=== PATIENT | female | born 1940 | race Caucasian/White ===

== ENCOUNTER 2016-06-09 09:45 | Day surgery (SDC) | payer MEDICARE, BC ==
[~2016-06-09 09:45] MED LIST: Bupivacaine 0.5%/EPINEPHrine 1:200,000 50 ML MDV ONE
[2016-06-09] MEDS ORDERED: Lactated Ringers 1,000 ML IV SCH (10:45)
[2016-06-09] MEDS ORDERED: ceFAZolin 2 GM in Sodium Chloride 0.9% 50 ML IV ONE (11:00)
[2016-06-09] MEDS ORDERED: ceFAZolin 2 GM in Premix Bag 1 BAG IV ONE (11:10)
[2016-06-09] MEDS ORDERED: Propofol 200 MG/20 ML SDV ONE (11:16)
[2016-06-09] MEDS ORDERED: Midazolam 1 MG/ML 2 ML SDV ONE (11:16)
[2016-06-09] MEDS ORDERED: fentaNYL 100 MCG/2 ML SDV ONE (11:16)
[2016-06-09] MEDS ORDERED: Lidocaine 1% with EPINEPHrine 1:100,000 50 ML MDV ONE (11:21)
[2016-06-09] MEDS ORDERED: Bupivacaine 0.5% 50 ML MDV ONE (11:21)
[2016-06-09 13:09] VITALS: BP 124/73
[2016-06-09] MEDS ORDERED: Acetaminophen/Codeine 300-30 MG Tab PO PRN (13:19)
--- NOTE | 2016-06-10 07:58 | OR ---
DATE OF PROCEDURE: 06/09/2016 PREOPERATIVE DIAGNOSIS: Recurrent pilonidal disease. POSTOPERATIVE DIAGNOSIS: Recurrent pilonidal disease with central pits and lateral abscess. PROCEDURE: Excision of central pilonidal pits, excision and drainage of right lateral pilonidal abscess, maintenance of lateral drainage. ANESTHESIA: IV anesthesia with monitored anesthesia care. INDICATIONS: This 75-year-old white female says over 50 years ago, she underwent excision of pilonidal disease. She now notes some mass on the right side of her buttock cleft which is tender. She has a pit in this area which is inferior to her pilonidal excision scar. She is here for excision of the central pit and drainage of the abscess, probably with maintenance of the lateral drainage. I counseled her for the procedure including risks and alternatives, and she gave her informed consent to proceed. DESCRIPTION OF PROCEDURE: The patient was placed prone in the jackknife position on the operating room table. IV anesthesia was administered by the Anesthesia Service. Her pilonidal area including the buttocks were prepped and draped in the usual sterile fashion. Time-out was held. Lidocaine 1% with epinephrine and 50:50 mix with 0.5% Marcaine was infiltrated about her pilonidal disease. An elliptical incision was made in the right lateral mass which was longitudinal. We released copious quantities of purulent material. This was sent for Gram stain and culture. The central pilonidal pit was excised. This material was sent to pathology. No obvious skin components were noted deep. The communication between the abscess and the central excision area was scored with a Ray-Debora sponge. The central incision was then closed with a running stitch of 3-0 Prolene. The incision was irrigated and suctioned dry. Quarter inch iodoform gauze was placed in the lateral drainage site and a sterile dressing was applied. She was placed supine and brought from the operating room in good condition having tolerated the procedure well. Samuel Lira MD /[id number]
== END 2016-06-09 14:00 | disposition home or self-care (01) ==
LOC: JP.SDS 09:45
PROVIDERS: ATTEND Surgery
PROC: 0JB90ZZ Excision of Buttock Subcutaneous Tissue and Fascia, Open Approach (ICD-10-PCS; principal; 2016-06-09)
DX: L05.01 Pilonidal cyst with abscess (principal); Z91.09 Other allergy status, other than to drugs and biological substances
CPT/HCPCS: 11770; 87070; 87075; 87205; A9270; J0690; J2250; J2704; J3010; J7120; 87077; 87186; 88304

== ENCOUNTER 2016-06-16 06:45 | Day surgery (SDC) | payer MEDICARE, BC ==
[2016-06-16] MEDS ORDERED: MVI, Adult with Vitamin K 10 ML, Thiamine 200 MG, Chromium/Copper/Mang/Selen/Zn 1 ML in... IV ONE ×4 (07:15)
[2016-06-16] MEDS ORDERED: Glycopyrrolate 0.2 MG/ML 2 ML SYRINGE IVPUSH ONE (07:15)
[2016-06-16] MEDS ORDERED: Cyanocobalamin (Vitamin B12) 1,000 MCG/ML SDV IM ONE (07:15)
[2016-06-16] MEDS ORDERED: Lactated Ringers 1,000 ML IV ONE (07:15)
[2016-06-16] MEDS ORDERED: Propofol 200 MG/20 ML SDV ONE (09:04)
[2016-06-16] MEDS ORDERED: fentaNYL 100 MCG/2 ML SDV ONE (09:04)
[2016-06-16 11:22] VITALS: BP 126/67
--- NOTE | 2016-06-18 08:03 | OR ---
DATE OF PROCEDURE: 06/16/2016 PREOPERATIVE DIAGNOSIS: Bilious emesis status post previous Mayte-en-Y gastric bypass. POSTOPERATIVE DIAGNOSIS: Bilious emesis status post Mayte-en-Y gastric bypass, suggestive of a partial small bowel obstruction. OPERATIVE PROCEDURE: Upper gastrointestinal endoscopy. ANESTHESIA: IV sedation. INDICATION FOR PROCEDURE: The patient is status post Mayte-en-Y gastric bypass in 2001. Overall, she has done well since that time. More recently, however, she has developed some bilious emesis, at times appearing to probably aspirate this. She has raised the head of her bed but still continues to have significant problems in this area. This would be suggestive of either partial small bowel obstruction resulting in bilious return through the Mayte limb versus a gastrogastric fistula. Plan is proceed with upper GI endoscopy for diagnostic purposes. Potential risks of the procedure, including bleeding and perforation, were discussed, and the patient wishes to proceed. DETAILS OF PROCEDURE: The patient was taken to the operating room and placed in a left lateral decubitus position. IV sedation was administered, after which the upper GI endoscope was passed orally through the length of the esophagus and into the gastric pouch and from there roughly 20 cm through the gastrojejunostomy and into the Mayte limb. There was noted to be some bile present immediately within the esophageal body. This was evacuated as it was encountered. As one passed down into the area of the esophagogastric junction and gastric pouch, these areas were somewhat reddened, likely related to the bile regurgitation. Very careful examination was undertaken at this point, looking for any evidence of a gastrogastric fistula. There was a small dimpling area posterior to the primary anastomosis, but after careful observation, no fistula could be identified overall. The entire wall of the gastric pouch was easily visualized. As one passed through the gastrojejunostomy, this was widely patent, and there continued to be bile present through the remainder of the visualized Mayte limb. The scope was then withdrawn. The above findings were then reconfirmed. As discussed with the patient, the amount of bile present would put the patient at significant risk for pulmonary complications. Given this, the plan will be to proceed with a diagnostic laparoscopy, laparotomy if necessary, and treatment of what is probably a partial small bowel obstruction. Will also carefully look at the area of the interface between the pouch and bypassed stomach to once again be as sure as possible there are not any gastrogastric fistulas that we are somehow not seeing. This will be scheduled for this coming , in other words, 48 hours. Bernardino Mcgraw MD /[id number]
== END 2016-06-16 11:45 | disposition home or self-care (01) ==
LOC: JP.SDS 06:45
PROVIDERS: ATTEND Surgery
DX: R11.14 Bilious vomiting (principal); I10 Essential (primary) hypertension; K21.9 Gastro-esophageal reflux disease without esophagitis; F32.9 Major depressive disorder, single episode, unspecified; F17.200 Nicotine dependence, unspecified, uncomplicated; Z98.84 Bariatric surgery status; Z91.09 Other allergy status, other than to drugs and biological substances
CPT/HCPCS: 43235; J2704; J3010; J3411; J3420; J7120

== ENCOUNTER 2016-06-19 12:15 | Inpatient (IN) | payer MEDICARE, BC ==
[2016-06-20] MEDS ORDERED: fentaNYL 25 MCG/HR Transdermal Patch TRDERM SCH (08:00)
[2016-06-20] MEDS ORDERED: FENTANYL PATCH ASK TOP SCH (08:00)
[2016-06-20] MEDS ORDERED: fentaNYL 12 MCG/HR Transdermal Patch TRDERM SCH (08:00)
[2016-06-20] MEDS ORDERED: Dexamethasone 4 MG/ML SDV ONE (08:36)
[2016-06-20] MEDS ORDERED: Succinylcholine/Normal Saline 200 MG/10 ML Syringe ONE (08:36)
[2016-06-20] MEDS ORDERED: Rocuronium 50 MG/5 ML Vial ONE (08:36)
[2016-06-20] MEDS ORDERED: Neostigmine Methylsulfate 1 MG/ML 5 ML Syringe ONE (08:36)
[2016-06-20] MEDS ORDERED: Propofol 200 MG/20 ML SDV ONE (08:36)
[2016-06-20] MEDS ORDERED: Ondansetron 4 MG/2 ML SDV ONE (08:36)
[2016-06-20] MEDS ORDERED: fentaNYL 250 MCG/5 ML SDV ONE (08:37)
[2016-06-20] MEDS ORDERED: HYDROmorphone/Normal Saline 15 MG/30 ML PCA IV PRN (08:44)
[2016-06-20] MEDS ORDERED: Naloxone 0.4 MG/ML SDV IVPUSH PRN (08:44)
[2016-06-20] MEDS ORDERED: Dextrose 5%-Lactated Ringers 1,000 ML IV SCH ×2 (09:00→13:30)
[2016-06-20] MEDS: Bupivacaine 0.5%/EPINEPHrine 1:200,000 50 ML MDV ONE ×2 (09:13→10:23)
[2016-06-20] MEDS ORDERED: Albuterol/Ipratropium 3.0-0.5 MG/3 ML Neb Soln NEB ONE (09:38)
[2016-06-20] MEDS: cefOXitin 2 GM in Sodium Chloride 0.9% 50 ML IV ONE ×2 (09:38→11:58)
[2016-06-20] MEDS ORDERED: Meropenem 500 MG SDV ONE (10:46)
[2016-06-20] MEDS ORDERED: Lactated Ringers 1,000 ML ONE (10:51)
--- NOTE | 2016-06-20 10:58 | CR ---
Heart size within normal limits. There is a diffuse reticular interstitial process within both lungs . No focal consolidation. Stenosis of the spine. Nodular density at the right third rib. Additional nodular density right midlung zone. Impression: 1. No focal consolidation 2. Interstitial thickening may be chronic. Correlate for mild interstitial edema. 3. Possible pulmonary nodules. Recommend nonurgent noncontrast chest CT follow-up.
[2016-06-20] MEDS ORDERED: Acetaminophen 1,000 MG in Premix Bag 1 BAG IV ONE (11:37)
[2016-06-20] MEDS ORDERED: Albuterol/Ipratropium 3.0-0.5 MG/3 ML Neb Soln INH PRN (13:23)
[2016-06-20] MEDS ORDERED: Ondansetron 4 MG/2 ML SDV IVPUSH PRN (13:28)
[2016-06-20] MEDS ORDERED: Labetalol 20 MG/4 ML Syringe IVPUSH PRN (13:28)
[2016-06-20] MEDS ORDERED: SCOPOLAMINE PATCH ASK TOP SCH (13:28)
[2016-06-20] MEDS ORDERED: hydrOXYzine HCl 50 MG/ML SDV IM PRN (13:28)
[2016-06-20] MEDS ORDERED: Metoclopramide 10 MG/2 ML SDV IV PRN (13:32)
[2016-06-20] MEDS ORDERED: diphenhydrAMINE 50 MG/ML SDV IV PRN (13:33)
[2016-06-20] MEDS: Albuterol/Ipratropium 3.0-0.5 MG/3 ML Neb Soln INH SCH ×2 (14:48→21:16)
[2016-06-20] MEDS: VERIFY FENT PATCH TOP SCH ×2 (15:26→20:05)
[2016-06-20] MEDS: Pantoprazole 40 MG Vial IVPUSH SCH (15:34)
[2016-06-20] MEDS: cefOXitin 2 GM in Sodium Chloride 0.9% 50 ML IV SCH ×2 (15:34→21:42)
[2016-06-20] MEDS ORDERED: MVI, Adult with Vitamin K 10 ML, Thiamine 200 MG, Chromium/Copper/Mang/Selen/Zn 1 ML in... IV SCH ×4 (16:00)
[2016-06-21] MEDS ORDERED: Iohexol 647 MG/ML 50 ML SDV PO STA (03:31)
[2016-06-21] MEDS: cefOXitin 2 GM in Sodium Chloride 0.9% 50 ML IV SCH ×4 (04:06→21:31)
[2016-06-21] MEDS: Albuterol/Ipratropium 3.0-0.5 MG/3 ML Neb Soln INH SCH ×4 (07:22→21:31)
[2016-06-21] MEDS ORDERED: Acetaminophen/Codeine 300-30 MG Tab PO PRN (07:52)
[2016-06-21] MEDS ORDERED: Acetaminophen 325 MG Tab PO PRN (07:52)
[2016-06-21] MEDS ORDERED: Dextrose 5%-Lactated Ringers 1,000 ML IV SCH (08:45)
[2016-06-21] MEDS: Aspirin 81 MG Tab.EC PO SCH (09:44)
[2016-06-21] MEDS: SCOPOLAMINE PATCH CHECK TOP SCH (10:00)
[2016-06-21] MEDS: VERIFY FENT PATCH TOP SCH (10:01)
[2016-06-21] MEDS: Pantoprazole 40 MG Vial IVPUSH SCH (15:14)
[2016-06-22] MEDS: Albuterol/Ipratropium 3.0-0.5 MG/3 ML Neb Soln INH SCH (07:14)
[2016-06-22 07:40] VITALS: BP 140/63
[2016-06-22] MEDS: Aspirin 81 MG Tab.EC PO SCH (08:17)
[2016-06-22] MEDS: SCOPOLAMINE PATCH CHECK TOP SCH (08:23)
[2016-06-22] MEDS ORDERED: Cyanocobalamin (Vitamin B12) 1,000 MCG/ML SDV IM ONE (09:00)
--- NOTE | 2016-06-22 12:08 | PN ---
DATE OF SERVICE: 06/21/2016 The patient has been afebrile with stable vital signs. She took in liquids adequately yesterday and then has had further bilious emesis. We will regular diet and switch over to oral pain medication, and she may be ready for discharge home tomorrow. Bernardino Mcgraw MD /[id number]
--- NOTE | 2016-06-23 08:13 | DISCH ---
FINAL DIAGNOSIS: Small bowel volvulus with stenotic jejunojejunostomy. SECONDARY DIAGNOSES: 1. Bariatric surgery status. 2. History of depression. 3. History of hypertension. 4. History of bilateral cyst status post recent incision and drainage. OPERATIVE PROCEDURE: Done on 06/20/2016, reveals a diagnostic laparoscopy with: 1. Reduction of small bowel volvulus and closure of internal hernia. 2. Revision of jejunojejunostomy component of Mayte-en-Y gastric bypass. HOSPITAL COURSE: This is a 75-year-old status post Mayte-en-Y gastric bypass in 2001. She over the past several weeks has had increasing problems with bilious emesis and bile getting up into the throat. Upper GI endoscopy failed to show any gastrogastric fistula and this was presumably related therefore to a small bowel obstruction. Diagnostic laparoscopy was performed which showed a small bowel volvulus. After this we reduced and there was quite a bit in the way of stenosis at the point where the Mayte limb entered the jejunojejunostomy. Given this the jejunojejunostomy was revised making the Mayte limb slightly longer with the biliary pancreatic limb being attached somewhat further distally on the bowel consisting of the Mayte limb as it always into the common limb. Postoperatively, the bilious emesis was absent, so the procedure appeared to be successful. She will be discharged home on a regular gastric bypass diet. She has not needed anything for pain over the last 24 hours so she will be instructed to take some Tylenol or Tylenol No. 3 which is what she has at home if needed otherwise, the problem with reflux has stopped so I will discontinue Protonix and Carafate. Otherwise, continue present home medications and follow up with Sarah Ray at [facility] on Thursday06/30/2016. The patient is packing a bilateral cyst ID site herself. Will have Sarah Ray check that as well and then subsequent followup can be renewed with Dr. Lira regarding that issue.
--- NOTE | 2016-06-23 08:28 | OR ---
DATE OF PROCEDURE: 06/20/2016 PREOPERATIVE DIAGNOSIS: Probable partial small bowel obstruction. POSTOPERATIVE DIAGNOSES: 1. Partial small bowel obstruction secondary to small bowel volvulus. 2. 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 OPERATIVE PROCEDURE: Diagnostic laparoscopy with: 1. Reduction of small bowel volvulus and closure of internal hernia (10595). 2. Revision of jejunojejunostomy component of Mayte-en-Y gastric bypass (55149). ANESTHESIA: General. EC TEACHER: Sarah Ray PA-C. INDICATION FOR PROCEDURE: This is a 75-year-old female status post Mayte-en-Y gastric bypass in 2001 presenting with some ongoing bilious vomiting and upper GI endoscopy was performed which showed no signs of gastric fistula so this revision will be related to bile backup secondary partial small bowel obstruction. Plan is to proceed with a diagnostic laparoscopy, laparotomy necessary and release of the bowel obstruction with small bowel resection as indicated. Potential risks of procedure including bleeding, infection, leaks from various GI tract closures, possible recurrence of the problem over time as well as remote possibility of cardiopulmonary, septic, or hemorrhagic complications leading to were discussed, and the patient wishes to proceed. DETAILS OF PROCEDURE: The patient was taken to the operating room and placed in a supine position. After general endotracheal anesthesia was induced, she was converted to a lithotomy position. Schaffer catheter was inserted and the abdomen was prepped and draped. Beginning the left lower quadrant, a transverse incision was made. The peritoneal cavity was entered under direct vision with Optiview trocar, inflated to 15 mmHg pressure of CO2. Laparoscope was then reinserted. No underlying trocar insertion site injuries were seen. Eventually 5 additional trocars were placed across the upper mid abdomen. Initial exploration revealed a small bowel volvulus with the small bowel rotating from a right to left direction through the defect in the mesentery of the jejunojejunostomy. Once this was reduced, all components appeared to be in appropriate location. However, there was an obvious stricture probably related chronic angulation at the biliopancreatic limb as it joined in the jejunojejunostomy. Given this, it was felt this anastomosis need to be revised. The bowel consisting of the Mayte limb going onto the common limb was then divided away from the biliary pancreatic limb. Small bowel and biliopancreatic limb was then resected, to get to a clean area.The jejunojejunostomy was then reconstructed at a point roughly 20 cm distal to the original anastomosis, this given the patient's Mayte limb length of around 150 cm. This was accomplished with internal firing of the Endo-JAMES vascular load, which closed transversely with the purple load and the angles anastomosed, and mesenteric defect approximated with some 0 Ethibond stitch along with fibrin sealant. At this point, no further problems were noted. The abdomen was irrigated with meropenem-containing saline solution. Trocars were removed. The fascia at the 12 mm site was closed with 0 Vicryl stitch and the skin with a 5-0 Prolene stitch as the patient is allergic to Vicryl. The patient was taken to the recovery room in satisfactory condition. Physician patient services assistant, Sarah Ray, played an essential role in assisting in this case, helping to position the patient, retract structures as needed, as well as suturing and cutting sutures when indicated. Her presence improved patient's safety and decreased the operative time. Bernardino Mcgraw MD /[id number]
--- NOTE | 2016-06-23 09:01 | CR ---
Limited upper GI The patient is status post Mayte-en-Y gastric bypass. There is no extravasation of contrast or fistul a. The gastric pouch empties readily into a nondilated Mayte limb. Contrast passes distal to the jeju nojejunal anastomosis. No complications are evident. Impression: 1. Status post Mayte-en-Y gastric bypass without evidence for complication.
== END 2016-06-22 11:10 | disposition home or self-care (01) | DRG 330 ==
LOC: JP.SDSSCHI 06-20 08:01 → JP.SDS 06-20 08:01 → EDSTATUS 06-20 12:00 → JP.2SS 06-20 12:30
PROVIDERS: ADMIT Surgery; ATTEND Surgery
PROC: 0DQA4ZZ Repair Jejunum, Percutaneous Endoscopic Approach (ICD-10-PCS; principal; 2016-06-20)
PROC: 0DSA4ZZ Reposition Jejunum, Percutaneous Endoscopic Approach (ICD-10-PCS; principal; 2016-06-20)
DX: K56.2 Volvulus (principal); K91.2 Postsurgical malabsorption, not elsewhere classified; K56.60 Unspecified intestinal obstruction; Z98.84 Bariatric surgery status; F32.9 Major depressive disorder, single episode, unspecified; I10 Essential (primary) hypertension; E66.01 Morbid (severe) obesity due to excess calories; Z68.35 Body mass index [BMI] 35.0-35.9, adult; K21.9 Gastro-esophageal reflux disease without esophagitis; E53.8 Deficiency of other specified B group vitamins; E55.9 Vitamin D deficiency, unspecified; F17.200 Nicotine dependence, unspecified, uncomplicated
CPT/HCPCS: 71020; 71020-26; 74240; 74240-26; 88307; 94640; 94640-76; 94762; A9270-GY; C9113; J0131; J0694; J1100; J1170; J2185; J2405; J2704; J2765; J3010; J3411; J3420; J7042; J7050; J7120; J7620; Q9967

== ENCOUNTER 2016-10-04 15:56 | Inpatient (IN) | payer MEDICARE, OTHER ==
--- NOTE | 2016-10-04 17:01 | EDM.PDOC ---
ED HPI GENERAL MEDICAL PROBLEM - General Chief Complaint: General Stated Complaint: BLOOD CLOT IN LEG Time Seen by Provider: 10/04/16 16:41 Source of Information: Reports: Patient History Limitations: Reports: No Limitations - History of Present Illness INITIAL COMMENTS - FREE TEXT/NARRATIVE: 75 yo female presents to ER with swollen left leg. She has had 2 weeks of decreased mobility with tick borne illness. Intermittent fever and chills this is improving. yesterday noticed increase in size of left leg. She is concerned for DVT. She denies SOB or pain with respirations. Mild ABD generalized tenderness. Denies N/V/D. Left Leg Pain Score (Numeric/FACES): 7 - Related Data Allergies Allergy/AdvReac Type Severity Reaction Status Date / Time vicryl suture Allergy Other Uncoded 10/04/16 16:28 Home Meds: Home Meds Aspirin [Ecotrin] 81 mg PO DAILY 06/06/16 [History] Calcium Citrate/Vitamin D3 [Calcium Citrate - Vit D Caplet] 1 each PO DAILY 09/15 [History] Cholecalciferol (Vitamin D3) [Vitamin D3] 3,000 unit PO DAILY 06/06/16 [History] Cyanocobalamin (Vitamin B-12) [B-12] 2,500 mcg SL DAILY 06/06/16 [History] Melatonin 3 mg PO BEDTIME PRN 06/06/16 [History] Potassium Gluconate 99 mg PO DAILY 06/06/16 [History] Vision Formula 1 tab PO DAILY 06/06/16 [History] Vitamin B Complex [B Complex] 1 each PO DAILY 06/06/16 [History] Multivitamin [Multiple Vitamins] 1 tab PO BID 06/18/16 [History] Past Medical History HEENT History: Reports: Impaired Vision Respiratory History: Reports: Pneumonia, Recurrent Gastrointestinal History: Reports: GERD, Hemorrhoids Genitourinary History: Reports: None [employer] WORKERS History: Reports: Musculoskeletal History: Reports: None Neurological History: Reports: None Psychiatric History: Reports: None Endocrine/Metabolic History: Reports: None Hematologic History: Reports: B12 Deficiency Other Hematologic History: DVT Immunologic History: Reports: None Oncologic (Cancer) History: Reports: None Dermatologic History: Reports: Angiodema - Infectious Disease History Infectious Disease History: Reports: Chicken Pox - Past Surgical History Cardiovascular Surgical History: Reports: None GI Surgical History: Reports: Bariatric Procedure, Cholecystectomy, Colonoscopy , EGD Musculoskeletal Surgical History: Reports: Knee Replacement Dermatological Surgical History: Reports: None Social & Family History - Family History Family Medical History: Noncontributory - Tobacco Use Smoking Status *Q: Unknown Ever Smoked Years of Tobacco use: 50 Packs/Tins Daily: 0.5 Used Tobacco, but Quit: No Second Hand Smoke Exposure: No - Caffeine Use Caffeine Use: Reports: Coffee - Recreational Drug Use Recreational Drug Use: No ED ROS GENERAL - Review of Systems Review Of Systems: See Below Constitutional: Reports: Fever, Chills Respiratory: Denies: Shortness of Breath, Wheezing Cardiovascular: Reports: Blood Pressure Problem (Pt has been having low BPs at home reading WNL in ER). Denies: Chest Pain GI/Abdominal: Reports: Abdominal Pain Skin: Denies: Rash ED EXAM, GENERAL - Physical Exam Exam: See Below Exam Limited By: No Limitations General Appearance: Alert, WD/WN Head: Atraumatic, Normocephalic Neck: Normal Inspection, Supple, Non-Tender. No: Lymphadenopathy (R), Lymphadenopathy (L) Respiratory/Chest: No Respiratory Distress, Lungs Clear. No: Crackles, Rhonchi , Wheezing Cardiovascular: Regular Rate, Rhythm, No Murmur Extremities: Other (full left LE edema, pedal pulses present) Neurological: Alert, Oriented Psychiatric: Normal Affect, Normal Mood Skin Exam: Warm, Dry, Intact. No: Rash Course - Vital Signs Last Recorded V/S: Last Vital Signs Temp 38.8 C H 10/04/16 21:35 Pulse 96 10/04/16 21:35 Resp 16 10/04/16 21:35 BP 123/72 10/04/16 21:35 Pulse Ox 96 10/04/16 21:35 - Orders/Labs/Meds Orders: Active Orders 24 hr Category Date Time Status Chest Abdomen Pelvis w Cont [CT] Stat Exams 10/04/16 19:15 Taken VL Duplex Lwr Ext Veins Ltd Lt [US] Stat Exams 10/04/16 17:00 Taken PTT,PARTIAL THROMBOPLSTIN TIME [COAG] Stat Lab 10/04/16 17:59 Uncollected Iopamidol [Isovue-370 (76%)] Med 10/04/16 19:45 Active 100 ml IV . DIRECTED Sodium Chloride 0.9% [Normal Saline] 1,000 ml Med 10/04/16 19:00 Active IV ASDIRECTED Sodium Chloride 0.9% [Saline Flush] Med 10/04/16 19:33 Active 10 ml FLUSH ONETIME PRN Medication Orders Sodium Chloride (Normal Saline) 1,000 mls @ 500 mls/hr IV ASDIRECTED MIKAELA Last Admin: 10/04/16 21:28 Dose: 500 mls/hr Iopamidol (Isovue-370 (76%)) 100 ml IV . DIRECTED MIKAELA Last Admin: 10/04/16 20:17 Dose: 100 ml Sodium Chloride (Saline Flush) 10 ml FLUSH ONETIME PRN PRN Reason: PER RADIOLOGY PROTOCOL Last Admin: 10/04/16 20:16 Dose: 10 ml Labs: Laboratory Tests 10/04/16 10/04/16 10/04/16 Range/Units 17:10 17:10 18:06 WBC 9.3 (4.5-11.0) K/uL RBC 4.47 (3.30-5.50) M/uL Hgb 12.2 (12.0-15.0) g/dL Hct 37.0 (36.0-48.0) % MCV 83 (80-98) fL MCH 27 (27-31) pg MCHC 33 (32-36) % Plt Count 128 L (150-400) K/uL Neut % (Auto) 35 L (36-66) % Lymph % (Auto) 50 H (24-44) % [place] % (Auto) 11 H (2-6) % Eos % (Auto) 0 L (2-4) % Baso % (Auto) 4 H (0-1) % PT 12.4 H (9.5-12.0) sec INR 1.15 (0.80-1.20) Sodium 136 L (140-148) mmol/L Potassium 4.6 (3.6-5.2) mmol/L Chloride 103 (100-108) mmol/L Carbon Dioxide 27 (21-32) mmol/L Anion Gap 10.6 (5.0-14.0) mmol/L BUN 18 (7-18) mg/dL Creatinine 0.9 (0.6-1.0) mg/dL Est Cr Clr Drug Dosing 39.39 mL/min Estimated GFR (MDRD) > 60 (>60) Glucose 111 H (74-106) mg/dL Calcium 7.9 L (8.5-10.1) mg/dL Total Bilirubin 0.6 (0.2-1.0) mg/dL AST 33 (15-37) U/L ALT 21 (12-78) U/L Alkaline Phosphatase 101 (46-116) U/L Total Protein 6.6 (6.4-8.2) g/dL Albumin 2.4 L (3.4-5.0) g/dL Globulin 4.2 H (2.3-3.5) g/dL Albumin/Globulin Ratio 0.6 L (1.2-2.2) Meds: Medications Generic Name Dose Route Start Last Admin Trade Name Freq PRN Reason Stop Dose Admin Sodium Chloride 1,000 mls @ 500 mls/hr 10/04/16 19:00 10/04/16 21:28 Normal Saline IV 500 mls/hr ASDIRECTED MIKAELA Administration Iopamidol 100 ml 10/04/16 19:45 10/04/16 20:17 Isovue-370 (76%) IV 100 ml . DIRECTED MIKAELA Administration Sodium Chloride 10 ml 10/04/16 19:33 10/04/16 20:16 Saline Flush FLUSH 10 ml ONETIME PRN Administration PER RADIOLOGY PROTOCOL Discontinued Medications Generic Name Dose Route Start Last Admin Trade Name Freq PRN Reason Stop Dose Admin Sodium Chloride 100 mls @ 3 mls/sec 10/04/16 19:33 10/04/16 20:16 Normal Saline IV 10/04/16 19:34 3 mls/sec ONETIME ONE Administration - Re-Assessments/Exams Free Text/Narrative Re-Assessment/Exam: 10/04/16 21:36 US extensive DVT, CT chest PE will admit Dr. Ayala accepted Departure - Departure Time of Disposition: 21:37 Disposition: Admitted As Inpatient 67 Clinical Impression: DVT (deep venous thrombosis) Qualifiers: DVT location: lower extremity Affected thrombotic vein of extremity: femoral Chronicity: acute Laterality: left Qualified Code(s): I82.412 - Acute embolism and thrombosis of left femoral vein Pulmonary embolism Qualifiers: Pulmonary embolism type: other Chronicity: acute Acute cor pulmonale presence: without acute cor pulmonale Qualified Code(s): I26.99 - Other pulmonary embolism without acute cor pulmonale - Discharge Information - My Orders Last 24 Hours: My Active Orders 10/04/16 17:00 VL Duplex Lwr Ext Veins Ltd Lt [US] Stat 10/04/16 17:59 PTT,PARTIAL THROMBOPLSTIN TIME [COAG] Stat 10/04/16 19:00 Sodium Chloride 0.9% [Normal Saline] 1,000 ml IV ASDIRECTED 10/04/16 19:15 Chest Abdomen Pelvis w Cont [CT] Stat 10/04/16 19:33 Sodium Chloride 0.9% [Saline Flush] 10 ml FLUSH ONETIME PRN 10/04/16 19:45 Iopamidol [Isovue-370 (76%)] 100 ml IV . DIRECTED - Assessment/Plan Last 24 Hours: My Active Orders 10/04/16 17:00 VL Duplex Lwr Ext Veins Ltd Lt [US] Stat 10/04/16 17:59 PTT,PARTIAL THROMBOPLSTIN TIME [COAG] Stat 10/04/16 19:00 Sodium Chloride 0.9% [Normal Saline] 1,000 ml IV ASDIRECTED 10/04/16 19:15 Chest Abdomen Pelvis w Cont [CT] Stat 10/04/16 19:33 Sodium Chloride 0.9% [Saline Flush] 10 ml FLUSH ONETIME PRN 10/04/16 19:45 Iopamidol [Isovue-370 (76%)] 100 ml IV . DIRECTED
[2016-10-04] MEDS ORDERED: Sodium Chloride 0.9% 1,000 ML IV SCH (19:00)
[2016-10-04] MEDS ORDERED: Sodium Chloride 0.9% 10 ML Syringe FLUSH PRN (19:33)
[2016-10-04] MEDS ORDERED: Sodium Chloride 0.9% 100 ML IV ONE (19:33)
[2016-10-04] MEDS ORDERED: Iopamidol 755 Mg/ML 100 ML Bottle IV SCH (19:45)
--- NOTE | 2016-10-04 20:57 | PCM.HP ---
H&P History of Present Illness - General Date of Service: 10/04/16 Admit Problem/Dx: Admission Diagnosis/Problem Admission Diagnosis/Problem DVT, Deep venous thrombosis of lower extremity Source of Information: Patient, Provider History Limitations: Reports: No Limitations - History of Present Illness Initial Comments - Free Text/Narative: Jennifer presents to the emergency room today with 2 days of achy left leg pain and swelling. Pain started without preceding injury and has progressed over the past 48 hours. She reports moderate pain in her left leg, especially with standing. Rest makes the pain better. No recent injury to the leg and no history of blood clots. She does not report shortness of breath or chest pain at this time. She has been struggling for the past month with fevers, night sweats, fatigue and nausea. She has been having difficulty eating any food because of the nausea and has been losing weight. She thinks that she is down about 8 pounds. No recent difficulties with diarrhea or change in bladder habits. She has mild left lower quadrant abdominal pain. No skin rashes. She has recently been treated with doxycycline for presumed anaplasmosis or Lyme disease. She does not feel better and continues to have fevers despite a prolonged course of antibiotics. Workup in the emergency room has revealed evidence for extensive left leg DVT. The plan is for inpatient admission for pain control and anticoagulation initiation. Left Leg Pain Score (Numeric/FACES): 7 - Related Data Allergies/Adverse Reactions: Allergies Allergy/AdvReac Type Severity Reaction Status Date / Time vicryl suture Allergy Other Uncoded 10/04/16 16:28 Home Medications: Home Meds Aspirin [Ecotrin] 81 mg PO DAILY 06/06/16 [History] Calcium Citrate/Vitamin D3 [Calcium Citrate - Vit D Caplet] 1 each PO DAILY 09/15 [History] Cholecalciferol (Vitamin D3) [Vitamin D3] 3,000 unit PO DAILY 06/06/16 [History] Cyanocobalamin (Vitamin B-12) [B-12] 2,500 mcg SL DAILY 06/06/16 [History] Melatonin 3 mg PO BEDTIME PRN 06/06/16 [History] Potassium Gluconate 99 mg PO DAILY 06/06/16 [History] Vision Formula 1 tab PO DAILY 06/06/16 [History] Vitamin B Complex [B Complex] 1 each PO DAILY 06/06/16 [History] Multivitamin [Multiple Vitamins] 1 tab PO BID 06/18/16 [History] Past Medical History HEENT History: Reports: Impaired Vision Respiratory History: Reports: Pneumonia, Recurrent Gastrointestinal History: Reports: GERD, Hemorrhoids Genitourinary History: Reports: None [employer]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: Musculoskeletal History: Reports: None Neurological History: Reports: None Psychiatric History: Reports: None Endocrine/Metabolic History: Reports: None Hematologic History: Reports: B12 Deficiency Other Hematologic History: DVT Immunologic History: Reports: None Oncologic (Cancer) History: Reports: None Dermatologic History: Reports: Angiodema - Infectious Disease History Infectious Disease History: Reports: Chicken Pox - Past Surgical History Cardiovascular Surgical History: Reports: None GI Surgical History: Reports: Bariatric Procedure, Cholecystectomy, Colonoscopy , EGD Musculoskeletal Surgical History: Reports: Knee Replacement Dermatological Surgical History: Reports: None Social & Family History - Family History Family Medical History: Noncontributory - Tobacco Use Smoking Status *Q: Unknown Ever Smoked Years of Tobacco use: 50 Packs/Tins Daily: 0.5 Used Tobacco, but Quit: No Second Hand Smoke Exposure: No - Caffeine Use Caffeine Use: Reports: Coffee - Alcohol Use Alcohol Use History: No - Recreational Drug Use Recreational Drug Use: No H&P Review of Systems - Review of Systems: Review Of Systems: See Below Free Text/Narrative: A complete 12 point review of systems was obtained. Pertinent positives and negatives are noted in the history of present illness. All other systems were reviewed and were negative except as noted. Exam - Exam Exam: See Below - Vital Signs Vital Signs: Last Vital Signs Temp 37.1 C 10/04/16 16:26 Pulse 77 10/04/16 16:26 Resp 16 10/04/16 16:26 BP 131/66 10/04/16 16:26 Pulse Ox 98 10/04/16 16:26 Weight: 71.668 kg - Exam Quality Assessment: No: Supplemental Oxygen General: Alert, Oriented, Cooperative, Mild Distress HEENT: Conjunctiva Clear, Mucosa Moist & [place]. No: Scleral Icterus Neck: Supple, Trachea Midline. No: Lymphadenopathy Lungs: Clear to Auscultation, Normal Respiratory Effort Cardiovascular: Regular Rate, Regular Rhythm. No: Systolic Murmur GI/Abdominal Exam: Normal Bowel Sounds, Soft, No Distention, Tender (Mild tenderness left lower quadrant) Back Exam: Normal Inspection, Full Range of Motion Extremities: Pedal Edema (Left leg), Increased Warmth (Left leg) Peripheral Pulses: 2+: Dorsalis Pedis (L), Dorsalis Pedis (R) Skin: Warm, Dry Neuro Extensive - Mental Status: Alert, Oriented x3, Nl Response to Commands Neuro Extensive - Motor, Sensory, Reflexes: CN II-XII Intact. No: Dysarthria, Abnormal Motor, Tremor Psychiatric: Alert, Normal Affect - Patient Data Lab Results Last 24 hrs: Laboratory Results - last 24 hr 10/04/16 10/04/16 10/04/16 Range/Units 17:10 17:10 18:06 WBC 9.3 (4.5-11.0) K/uL RBC 4.47 (3.30-5.50) M/uL Hgb 12.2 (12.0-15.0) g/dL Hct 37.0 (36.0-48.0) % MCV 83 (80-98) fL MCH 27 (27-31) pg MCHC 33 (32-36) % Plt Count 128 L (150-400) K/uL Neut % (Auto) 35 L (36-66) % Lymph % (Auto) 50 H (24-44) % [place] % (Auto) 11 H (2-6) % Eos % (Auto) 0 L (2-4) % Baso % (Auto) 4 H (0-1) % PT 12.4 H (9.5-12.0) sec INR 1.15 (0.80-1.20) Sodium 136 L (140-148) mmol/L Potassium 4.6 (3.6-5.2) mmol/L Chloride 103 (100-108) mmol/L Carbon Dioxide 27 (21-32) mmol/L Anion Gap 10.6 (5.0-14.0) mmol/L BUN 18 (7-18) mg/dL Creatinine 0.9 (0.6-1.0) mg/dL Est Cr Clr Drug Dosing 39.39 mL/min Estimated GFR (MDRD) > 60 (>60) Glucose 111 H (74-106) mg/dL Calcium 7.9 L (8.5-10.1) mg/dL Total Bilirubin 0.6 (0.2-1.0) mg/dL AST 33 (15-37) U/L ALT 21 (12-78) U/L Alkaline Phosphatase 101 (46-116) U/L Total Protein 6.6 (6.4-8.2) g/dL Albumin 2.4 L (3.4-5.0) g/dL Globulin 4.2 H (2.3-3.5) g/dL Albumin/Globulin Ratio 0.6 L (1.2-2.2) Result Diagrams: 10/04/16 17:10 10/04/16 17:10 Imaging Impressions Last 24 hrs: Left leg venous ultrasound - images personally reviewed - extensive DVT throughout left leg with noncompressible leg pains including common femoral and superficial femoral vein CT of the chest abdomen and pelvis - formal radiology interpretation is pending *Q Meaningful Use (ADM) - VTE *Q VTE Criteria *Q: - VTE Risk Assess *Q Each Risk Factor Represents 1 Point: Swollen Legs, Current, Obesity (BMI greater than 30) Total Score 1 Point Risk Factors: 2 Each Risk Factor Represents 2 Points: Age 60 - 74 Years Total Score 2 Point Risk Factors: 2 Each Risk Factor Represents 3 Points: None, Family Hx of DVT or PE Total Score 3 Point Risk Factors: 3 Each Risk Factor Represents 5 Points: None Total Score 5 Point Risk Factors: 0 Venous Thromboembolism Risk Factor Score *Q: 7 - Stroke *Q Stroke Criteria *Q: - AMI *Q AMI Criteria *Q: - Problem List (1) Left leg DVT SNOMED Code(s): 027715716 ICD Code: I82.402 - ACUTE EMBOLISM AND THOMBOS UNSP DEEP VEINS OF L LOW EXTREM Status: Acute Current Visit: Yes Qualifiers: Affected thrombotic vein of extremity: femoral Chronicity: acute Qualified Code(s): I82.412 - Acute embolism and thrombosis of left femoral vein (2) Pulmonary embolism SNOMED Code(s): 45092678, 13017513 ICD Code: I26.99 - OTHER PULMONARY EMBOLISM WITHOUT ACUTE COR PULMONALE Status: Acute Current Visit: Yes Qualifiers: Pulmonary embolism type: other Chronicity: acute Acute cor pulmonale presence: without acute cor pulmonale Qualified Code(s): I26.99 - Other pulmonary embolism without acute cor pulmonale (3) Fever SNOMED Code(s): 173847463 ICD Code: R50.9 - FEVER, UNSPECIFIED Status: Acute Current Visit: Yes Qualifiers: Fever type: unspecified Qualified Code(s): R50.9 - Fever, unspecified Problem List Initiated/Reviewed/Updated: Yes Orders Last 24hrs: Active Orders 24 hr Category Date Time Status Patient Status Manage Transfer [TRANSFER] Routine ADT 10/04/16 20:45 Ordered Chest Abdomen Pelvis w Cont [CT] Stat Exams 10/04/16 19:15 Taken VL Duplex Lwr Ext Veins Ltd Lt [US] Stat Exams 10/04/16 17:00 Taken PTT,PARTIAL THROMBOPLSTIN TIME [COAG] Stat Lab 10/04/16 17:59 Uncollected Iopamidol [Isovue-370 (76%)] Med 10/04/16 19:45 Active 100 ml IV . DIRECTED Sodium Chloride 0.9% [Normal Saline] 1,000 ml Med 10/04/16 19:00 Active IV ASDIRECTED Sodium Chloride 0.9% [Saline Flush] Med 10/04/16 19:33 Active 10 ml FLUSH ONETIME PRN Resuscitation Status Routine Resus Stat 10/04/16 20:47 Ordered Medication Orders Sodium Chloride (Normal Saline) 1,000 mls @ 500 mls/hr IV ASDIRECTED MIKAELA Iopamidol (Isovue-370 (76%)) 100 ml IV . DIRECTED MIKAELA Last Admin: 10/04/16 20:17 Dose: 100 ml Sodium Chloride (Saline Flush) 10 ml FLUSH ONETIME PRN PRN Reason: PER RADIOLOGY PROTOCOL Last Admin: 10/04/16 20:16 Dose: 10 ml Assessment/Plan Comment:: Assessment and plan - Left leg DVT and small pulmonary embolism - suspect provoked DVT with recent prolonged immobilization secondary to medical illness. There is a family history of DVT. Symptomatic with the left leg DVT but not symptomatic with the pulmonary embolism other than possibly fatigue. Patient would like to think about long-term management with either warfarin or one of the novel oral anticoagulants. -Enoxaparin 1 mg/kg every 12 hours -Readdress oral anticoagulation tomorrow morning -Pain control -Supplement oxygen if indicated Fevers - one month history of fevers with night sweats and nausea. She has been treated for presumed tickborne illness without any improvement. CT of the chest abdomen and pelvis is pending. No evidence for sepsis. This could be related to her extensive DVT. -Follow-up CT results -Monitor temperature curve -Consider blood cultures if she spikes a fever Maintenance issues - - DVT prophylaxis - enoxaparin - GI prophylaxis - not indicated - Nutrition - regular diet - Schaffer catheter - not indicated CODE STATUS - full code Admission justification - This patient will be admitted for inpatient services and is medically appropriate meeting medical necessity for inpatient admission as outlined in my documentation. I reasonably expect the patient will require inpatient services that span a period time over 2 midnights. I reasonably expect this patient to be discharged or transferred within 96 hours after admission to the [facility]. Disposition - anticipate discharge to home with possibly with home health care after the hospital stay Primary care physician - Dr Faizan Ayala M.D.
[2016-10-04] MEDS ORDERED: Ondansetron 4 MG Tab.DIS PO PRN (22:00)
[2016-10-04] MEDS ORDERED: Polyethylene Glycol 3350 Powder 17 GM Packet PO PRN (22:00)
[2016-10-04] MEDS ORDERED: Melatonin 3 MG Tab PO PRN (22:00)
[2016-10-04] MEDS: Enoxaparin 80 MG/0.8 ML Syringe SUBCUT SCH (22:25)
[2016-10-05] MEDS ORDERED: Sodium Chloride 0.9% 500 ML IV ONE (03:40)
[2016-10-05] MEDS: Cholecalciferol (Vitamin D3) 1,000 Unit Tab PO SCH (08:12)
[2016-10-05] MEDS: Cyanocobalamin (Vitamin B12) 1,000 MCG Tab PO SCH (08:12)
[2016-10-05] MEDS: Aspirin 81 MG Tab.EC PO SCH (08:13)
[2016-10-05] MEDS: Vitamin B Complex Tab PO SCH (09:48)
[2016-10-05] MEDS: Enoxaparin 80 MG/0.8 ML Syringe SUBCUT SCH ×2 (09:48→21:30)
--- NOTE | 2016-10-05 11:23 | PCM.PN ---
- General Info Date of Service: 10/05/16 Functional Status: Reports: Pain Controlled, Tolerating Diet - Review of Systems General: Reports: Weakness Pulmonary: Denies: Shortness of Breath Cardiovascular: Reports: Edema (left leg) Musculoskeletal: Reports: Leg Pain Systems Review Comment:: No acute events overnight. Tolerating anticoagulation so far. Left leg feels a little bit better today. Swelling has decreased and pain has decreased slightly. No fevers overnight following her spike in the emergency room. No complaints of abdominal pain. No shortness of breath. - Patient Data Vitals - Most Recent: Last Vital Signs Temp 36.2 C 10/05/16 07:00 Pulse 64 10/05/16 07:00 Resp 18 10/05/16 07:00 BP 75/46 L 10/05/16 07:00 Pulse Ox 96 10/05/16 07:00 Weight - Most Recent: 72.756 kg I&O - Last 24 Hours: Intake & Output 10/04/16 10/05/16 10/05/16 22:59 06:59 14:59 Intake Total 1780 360 Output Total 350 125 Balance 1430 235 Lab Results Last 24 Hours: Laboratory Results - last 24 hr 10/05/16 10/05/16 Range/Units 05:11 05:48 WBC 7.3 (4.5-11.0) K/uL RBC 3.67 (3.30-5.50) M/uL Hgb 9.9 L D (12.0-15.0) g/dL Hct 30.5 L (36.0-48.0) % MCV 83 (80-98) fL MCH 27 (27-31) pg MCHC 33 (32-36) % Plt Count 121 L (150-400) K/uL Sodium 137 L (140-148) mmol/L Potassium 4.1 (3.6-5.2) mmol/L Chloride 106 (100-108) mmol/L Carbon Dioxide 26 (21-32) mmol/L Anion Gap 9.1 (5.0-14.0) mmol/L BUN 14 (7-18) mg/dL Creatinine 0.8 (0.6-1.0) mg/dL Est Cr Clr Drug Dosing 44.31 mL/min Estimated GFR (MDRD) > 60 (>60) Glucose 93 (74-106) mg/dL Calcium 7.2 L (8.5-10.1) mg/dL Med Orders - Current: Current Medications Acetaminophen (Tylenol) 650 mg PO Q4H PRN PRN Reason: Pain (Mild 1-3)/fever Aspirin (Halfprin) 81 mg PO DAILY [facility] Last Admin: 10/05/16 08:13 Dose: 81 mg Cholecalciferol (Vitamin D3) 3,000 units PO DAILY [facility] Last Admin: 10/05/16 08:12 Dose: 3,000 units Cyanocobalamin (Vitamin B12) 2,500 mcg PO DAILY [facility] Last Admin: 10/05/16 08:12 Dose: 2,500 mcg Enoxaparin Sodium (Lovenox) 70 mg SUBCUT Q12H [facility] Last Admin: 10/05/16 09:48 Dose: 70 mg Melatonin (Melatonin) 3 mg PO BEDTIME PRN PRN Reason: Sleep Ondansetron HCl (Zofran Odt) 4 mg PO Q6H PRN PRN Reason: Nausea able to take PO Oxycodone HCl (Oxycodone) 5 mg PO Q4H PRN PRN Reason: Pain (moderate 4-6) Pneumococcal Polyvalent Vaccine (Pneumovax 23) 0.5 ml IM .ONCE ONE Stop: 10/06/16 10:01 Polyethylene Glycol (Miralax) 17 gm PO DAILY PRN PRN Reason: Constipation Senna/Docusate Sodium (Senna Plus) 1 tab PO BID PRN PRN Reason: Constipation Vitamin B Complex (Vitamin B Complex) 1 each PO DAILY [facility] Last Admin: 10/05/16 09:48 Dose: 1 each Discontinued Medications Sodium Chloride (Normal Saline) 1,000 mls @ 500 mls/hr IV ASDIRECTED [facility] Last Admin: 10/04/16 21:28 Dose: 500 mls/hr Sodium Chloride (Normal Saline) 100 mls @ 3 mls/sec IV ONETIME ONE Stop: 10/04/16 19:34 Last Admin: 10/04/16 20:16 Dose: 3 mls/sec Sodium Chloride (Normal Saline) 500 mls @ 500 mls/hr IV .BOLUS ONE Stop: 10/05/16 04:39 Last Admin: 10/05/16 03:53 Dose: 500 mls/hr Iopamidol (Isovue-370 (76%)) 100 ml IV . DIRECTED [facility] Last Admin: 10/04/16 20:17 Dose: 100 ml Sodium Chloride (Saline Flush) 10 ml FLUSH ONETIME PRN PRN Reason: PER RADIOLOGY PROTOCOL Last Admin: 10/04/16 20:16 Dose: 10 ml - Exam Quality Assessment: No: Supplemental Oxygen General: Alert, Oriented, Cooperative, No Acute Distress Neck: Supple Lungs: Normal Respiratory Effort Cardiovascular: Regular Rate, Regular Rhythm GI/Abdominal Exam: Soft, No Distention Extremities: Increased Warmth (left leg), Other (left leg swollen from foot to thigh, mildly improved from yesterday ) Skin: Warm, Dry Psy/Mental Status: Alert, Normal Affect - Problem List & Annotations (1) Left leg DVT SNOMED Code(s): 819344998 Code(s): I82.402 - ACUTE EMBOLISM AND THOMBOS UNSP DEEP VEINS OF L LOW EXTREM Status: Acute Current Visit: Yes Qualifiers: Affected thrombotic vein of extremity: femoral Chronicity: acute Qualified Code(s): I82.412 - Acute embolism and thrombosis of left femoral vein (2) Pulmonary embolism SNOMED Code(s): 02353315, 38422194 Code(s): I26.99 - OTHER PULMONARY EMBOLISM WITHOUT ACUTE COR PULMONALE Status: Acute Current Visit: Yes Qualifiers: Pulmonary embolism type: other Chronicity: acute Acute cor pulmonale presence: without acute cor pulmonale Qualified Code(s): I26.99 - Other pulmonary embolism without acute cor pulmonale (3) Fever SNOMED Code(s): 514515906 Code(s): R50.9 - FEVER, UNSPECIFIED Status: Acute Current Visit: Yes Qualifiers: Fever type: unspecified Qualified Code(s): R50.9 - Fever, unspecified - Problem List Review Problem List Initiated/Reviewed/Updated: Yes - My Orders Last 24 Hours: My Active Orders 10/04/16 20:47 Resuscitation Status Routine 10/04/16 22:00 Patient Status [ADT] Routine Bedrest Bathroom Privileges [RC] ASDIRECTED Intake and Output [RC] QSHIFT Notify Provider Vital Signs [RC] ASDIRECTED Oxygen Therapy [RC] PRN Vital Signs [RC] Q4H Acetaminophen [Tylenol] 650 mg PO Q4H PRN Docusate Sodium/Sennosides [Senna Plus] 1 tab PO BID PRN Enoxaparin [Lovenox] 70 mg SUBCUT Q12H Ondansetron [Zofran ODT] 4 mg PO Q6H PRN Polyethylene Glycol 3350 [MiraLAX] 17 gm PO DAILY PRN oxyCODONE 5 mg PO Q4H PRN 10/05/16 11:22 PT Evaluation and Treatment [CONS] Routine 10/06/16 05:00 BABESIA MICROTI IGG AND IGM [REF] Timed BASIC METABOLIC PANEL,BMP [CHEM] Timed CBC W/O DIFF,HEMOGRAM [HEME] Timed (1) EHRLICHIA CHAFFEENSIS, IGG&IGM [REF] Timed INR,PT,PROTHROMBIN TIME [COAG] Timed LYME AB SCREEN RFLX [REF] Timed 10/06/16 10:00 Pneumococcal Polyvalent-23 Vac [Pneumovax 23] 0.5 ml IM .ONCE ONE - Plan Plan:: Assessment and plan - Left leg DVT and small pulmonary embolism - suspect provoked DVT with recent prolonged immobilization secondary to medical illness. There is a family history of DVT. Tolerating anticoagulation so far. -Enoxaparin 1 mg/kg every 12 hours -Start warfarin today -Pain control -Supplement oxygen if indicated -Anticipate 3-6 months of therapy Fevers - one month history of fevers with night sweats and nausea. She has been treated for presumed tickborne illness without any improvement. CT of the chest abdomen and pelvis did not show obvious evidence for pathology. This may be related to inflammation from the thrombus but occult infection or possibly malignancy cannot be ruled out at this time. -Monitor temperature curve -Follow-up blood cultures Maintenance issues - - DVT prophylaxis - enoxaparin - GI prophylaxis - not indicated - Nutrition - regular diet Disposition - anticipate discharge to home with possibly with home health care after the hospital stay Karlos Ayala M.D.
[2016-10-05] MEDS ORDERED: Warfarin 5 MG Tab PO ONE (20:00)
[2016-10-06] MEDS: Cyanocobalamin (Vitamin B12) 1,000 MCG Tab PO SCH (08:08)
[2016-10-06] MEDS: Aspirin 81 MG Tab.EC PO SCH (08:08)
[2016-10-06] MEDS: Cholecalciferol (Vitamin D3) 1,000 Unit Tab PO SCH (08:09)
[2016-10-06] MEDS: Vitamin B Complex Tab PO SCH (08:10)
[2016-10-06] MEDS ORDERED: Pneumococcal Polyvalent-23 Vaccine 0.5 ML SDV IM ONE (10:00)
[2016-10-06] MEDS: Enoxaparin 80 MG/0.8 ML Syringe SUBCUT SCH ×2 (10:14→22:18)
[2016-10-06] MEDS: Acetaminophen 325 MG Tab PO PRN ×3 (11:55→22:24)
[2016-10-06] MEDS: Warfarin 5 MG Tab PO SCH (13:11)
--- NOTE | 2016-10-06 15:37 | PCM.PN ---
- General Info Date of Service: 10/06/16 - Review of Systems General: Reports: Fever, Weakness. Denies: Chills Pulmonary: Reports: No Symptoms Cardiovascular: Reports: No Symptoms Gastrointestinal: Reports: No Symptoms Musculoskeletal: Reports: Leg Pain Systems Review Comment:: This patient has been fairly stable since admission, she developed significant left leg swelling and is been found to have a left leg DVT with a small pulmonary emboli. Did on anticoagulation with Lovenox and warfarin at the time of admission. Over the past month has not felt well with proximal muscle stiffness as well as some weakness, fevers, and fatigue. - Patient Data Vitals - Most Recent: Last Vital Signs Temp 95.7 F 10/06/16 14:34 Pulse 67 10/06/16 14:34 Resp 18 10/06/16 14:34 BP 90/53 L 10/06/16 14:34 Pulse Ox 96 10/06/16 14:34 Weight - Most Recent: 160 lb 6.392 oz I&O - Last 24 Hours: Intake & Output 10/06/16 10/06/16 10/06/16 06:59 14:59 22:59 Intake Total 360 Output Total 200 100 Balance -200 260 Lab Results Last 24 Hours: Laboratory Results - last 24 hr 10/06/16 10/06/16 10/06/16 Range/Units 04:37 04:37 04:37 WBC 5.9 (4.5-11.0) K/uL RBC 3.81 (3.30-5.50) M/uL Hgb 10.3 L (12.0-15.0) g/dL Hct 31.9 L (36.0-48.0) % MCV 84 (80-98) fL MCH 27 (27-31) pg MCHC 32 (32-36) % Plt Count 138 L (150-400) K/uL PT 12.5 H (9.5-12.0) sec INR 1.16 (0.80-1.20) Sodium 138 L (140-148) mmol/L Potassium 4.0 (3.6-5.2) mmol/L Chloride 106 (100-108) mmol/L Carbon Dioxide 26 (21-32) mmol/L Anion Gap 10.0 (5.0-14.0) mmol/L BUN 16 (7-18) mg/dL Creatinine 0.9 (0.6-1.0) mg/dL Est Cr Clr Drug Dosing 39.39 mL/min Estimated GFR (MDRD) > 60 (>60) Glucose 115 H (74-106) mg/dL Calcium 7.3 L (8.5-10.1) mg/dL [place] Results Last 24 Hours: Microbiology 10/04/16 21:35 Aerobic Blood Culture - Preliminary Blood - Arm, Right NO GROWTH AFTER 1 DAY Anaerobic Blood Culture - Preliminary NO GROWTH AFTER 1 DAY 10/04/16 21:35 Aerobic Blood Culture - Preliminary Blood - Arm, Right NO GROWTH AFTER 1 DAY Anaerobic Blood Culture - Preliminary NO GROWTH AFTER 1 DAY Med Orders - Current: Current Medications Acetaminophen (Tylenol) 650 mg PO Q4H PRN PRN Reason: Pain (Mild 1-3)/fever Last Admin: 10/06/16 15:31 Dose: 650 mg Aspirin (Halfprin) 81 mg PO DAILY [facility] Last Admin: 10/06/16 08:08 Dose: 81 mg Cholecalciferol (Vitamin D3) 3,000 units PO DAILY [facility] Last Admin: 10/06/16 08:09 Dose: 3,000 units Cyanocobalamin (Vitamin B12) 2,500 mcg PO DAILY [facility] Last Admin: 10/06/16 08:08 Dose: 2,500 mcg Enoxaparin Sodium (Lovenox) 70 mg SUBCUT Q12H [facility] Last Admin: 10/06/16 10:14 Dose: 70 mg Melatonin (Melatonin) 3 mg PO BEDTIME PRN PRN Reason: Sleep Non-Formulary Medication (Multivitamin [Multiple Vitamins]) 1 tab PO BID [facility] Non-Formulary Medication (Potassium Gluconate [Potassium Gluconate]) 99 mg PO DAILY [facility] Ondansetron HCl (Zofran Odt) 4 mg PO Q6H PRN PRN Reason: Nausea able to take PO Oxycodone HCl (Oxycodone) 5 mg PO Q4H PRN PRN Reason: Pain (moderate 4-6) Polyethylene Glycol (Miralax) 17 gm PO DAILY PRN PRN Reason: Constipation Senna/Docusate Sodium (Senna Plus) 1 tab PO BID PRN PRN Reason: Constipation Vitamin B Complex (Vitamin B Complex) 1 each PO DAILY [facility] Last Admin: 10/06/16 08:10 Dose: 1 each Warfarin Sodium (Coumadin) 5 mg PO DAILY@1300 [facility] Last Admin: 10/06/16 13:11 Dose: 5 mg Discontinued Medications Sodium Chloride (Normal Saline) 1,000 mls @ 500 mls/hr IV ASDIRECTED [facility] Last Admin: 10/04/16 21:28 Dose: 500 mls/hr Sodium Chloride (Normal Saline) 100 mls @ 3 mls/sec IV ONETIME ONE Stop: 10/04/16 19:34 Last Admin: 10/04/16 20:16 Dose: 3 mls/sec Sodium Chloride (Normal Saline) 500 mls @ 500 mls/hr IV .BOLUS ONE Stop: 10/05/16 04:39 Last Admin: 10/05/16 03:53 Dose: 500 mls/hr Iopamidol (Isovue-370 (76%)) 100 ml IV . DIRECTED [facility] Last Admin: 10/04/16 20:17 Dose: 100 ml Pneumococcal Polyvalent Vaccine (Pneumovax 23) 0.5 ml IM .ONCE ONE Stop: 10/06/16 10:01 Sodium Chloride (Saline Flush) 10 ml FLUSH ONETIME PRN PRN Reason: PER RADIOLOGY PROTOCOL Last Admin: 10/04/16 20:16 Dose: 10 ml Warfarin Sodium (Coumadin) 5 mg PO ONETIME ONE Stop: 10/05/16 20:01 Last Admin: 10/05/16 20:41 Dose: 5 mg - Exam Quality Assessment: DVT Prophylaxis General: Alert, Oriented, Cooperative, Mild Distress Lungs: Clear to Auscultation, Normal Respiratory Effort Cardiovascular: Regular Rate, Regular Rhythm, No Murmurs GI/Abdominal Exam: Normal Bowel Sounds, Soft, Non-Tender Extremities: Pedal Edema Skin: Warm, Dry, Intact - Problem List Review Problem List Initiated/Reviewed/Updated: Yes - My Orders Last 24 Hours: My Active Orders 10/06/16 09:08 Consult to Dietary [Consult to Machine Stuffer] [CONS] Routine 10/06/16 15:45 Multivitamin [Multiple Vitamins] 1 tab PO BID Potassium Gluconate [Potassium Gluconate] 99 mg PO DAILY 10/07/16 05:00 BASIC METABOLIC PANEL,BMP [CHEM] Timed CBC WITH AUTO DIFF [HEME] Timed INR,PT,PROTHROMBIN TIME [COAG] Timed MAGNESIUM [CHEM] Timed 10/07/16 05:11 C-REACTIVE PROTEIN [CHEM] AM SEDIMENTATION RATE MANUAL [HEME] AM - Plan Plan:: Assessment and plan - Left leg DVT and small pulmonary embolism - suspect provoked DVT with recent prolonged immobilization secondary to medical illness. There is a family history of DVT. Tolerating anticoagulation so far. -Enoxaparin 1 mg/kg every 12 hours -Continue daily warfarin -Pain control -Supplement oxygen if indicated -Anticipate 3-6 months of therapy Fevers - one month history of fevers with night sweats and nausea. She has been treated for presumed tickborne illness without any improvement. CT of the chest abdomen and pelvis did not show obvious evidence for pathology. Consider malignancy, versus chronic infection, versus autoimmune process. No significant temperature elevation noted thus far during hospitalization -Sedimentation rate and CRP in a.m. -Monitor temperature curve -Follow-up blood cultures Maintenance issues - - DVT prophylaxis - enoxaparin - GI prophylaxis - not indicated - Nutrition - regular diet Disposition - anticipate discharge to home with possibly with home health care after the hospital stay
[2016-10-06] MEDS ORDERED: Non-Formulary Medication 1 Each (Potassium Gluconate [Potassium Gluconate] 99 MG) PO SCH (15:45)
[2016-10-06] MEDS: Multivitamins with Iron Tab.Chew PO SCH ×2 (17:13→22:19)
[2016-10-07] MEDS: Acetaminophen 325 MG Tab PO PRN ×2 (09:43→17:55)
[2016-10-07] MEDS: Cyanocobalamin (Vitamin B12) 1,000 MCG Tab PO SCH (09:44)
[2016-10-07] MEDS: Multivitamins with Iron Tab.Chew PO SCH ×2 (09:44→21:00)
[2016-10-07] MEDS: Enoxaparin 80 MG/0.8 ML Syringe SUBCUT SCH ×2 (09:45→21:00)
[2016-10-07] MEDS: Cholecalciferol (Vitamin D3) 1,000 Unit Tab PO SCH (09:45)
[2016-10-07] MEDS: Vitamin B Complex Tab PO SCH (09:45)
[2016-10-07] MEDS: Aspirin 81 MG Tab.EC PO SCH (09:45)
[2016-10-07] MEDS: Warfarin 5 MG Tab PO SCH (13:40)
--- NOTE | 2016-10-07 15:48 | PCM.PN ---
- General Info Date of Service: 10/07/16 Functional Status: Reports: Pain Controlled, Tolerating Diet, Urinating - Review of Systems General: Reports: Weakness. Denies: Fever, Chills Pulmonary: Reports: No Symptoms Cardiovascular: Reports: No Symptoms Gastrointestinal: Reports: No Symptoms Musculoskeletal: Reports: Leg Pain Systems Review Comment:: Patient has remained stable since yesterday, vital signs have been good and she has remained afebrile. INR remains subtherapeutic mild persistent swelling in the leg. Markers of inflammation including CRP and sedimentation rate were only mildly elevated. - Patient Data Vitals - Most Recent: Last Vital Signs Temp 96.1 F 10/07/16 07:35 Pulse 75 10/07/16 07:35 Resp 18 10/07/16 07:35 BP 98/54 L 10/07/16 07:35 Pulse Ox 96 10/07/16 07:35 Weight - Most Recent: 160 lb 6.392 oz I&O - Last 24 Hours: Intake & Output 10/07/16 10/07/16 10/07/16 06:59 14:59 22:59 Output Total 650 400 Balance -650 -400 Lab Results Last 24 Hours: Laboratory Results - last 24 hr 10/07/16 10/07/16 10/07/16 Range/Units 04:20 04:20 04:20 WBC 5.6 (4.5-11.0) K/uL RBC 3.77 (3.30-5.50) M/uL Hgb 10.2 L (12.0-15.0) g/dL Hct 31.9 L (36.0-48.0) % MCV 85 (80-98) fL MCH 27 (27-31) pg MCHC 32 (32-36) % Plt Count 144 L (150-400) K/uL Neut % (Auto) 25 L (36-66) % Lymph % (Auto) 60 H (24-44) % [place] % (Auto) 10 H (2-6) % Eos % (Auto) 1 L (2-4) % Baso % (Auto) 4 H (0-1) % ESR (0-25) mm/hr PT 17.9 H (9.5-12.0) sec INR 1.64 H (0.80-1.20) Sodium 142 (140-148) mmol/L Potassium 4.1 (3.6-5.2) mmol/L Chloride 109 H (100-108) mmol/L Carbon Dioxide 27 (21-32) mmol/L Anion Gap 10.1 (5.0-14.0) mmol/L BUN 14 (7-18) mg/dL Creatinine 0.9 (0.6-1.0) mg/dL Est Cr Clr Drug Dosing 39.39 mL/min Estimated GFR (MDRD) > 60 (>60) Glucose 104 (74-106) mg/dL Calcium 7.7 L (8.5-10.1) mg/dL Magnesium 2.1 (1.8-2.4) mg/dL C-Reactive Protein (0.0-0.3) mg/dL 10/07/16 10/07/16 Range/Units 04:20 04:20 WBC (4.5-11.0) K/uL RBC (3.30-5.50) M/uL Hgb (12.0-15.0) g/dL Hct (36.0-48.0) % MCV (80-98) fL MCH (27-31) pg MCHC (32-36) % Plt Count (150-400) K/uL Neut % (Auto) (36-66) % Lymph % (Auto) (24-44) % [place] % (Auto) (2-6) % Eos % (Auto) (2-4) % Baso % (Auto) (0-1) % ESR 32 H (0-25) mm/hr PT (9.5-12.0) sec INR (0.80-1.20) Sodium (140-148) mmol/L Potassium (3.6-5.2) mmol/L Chloride (100-108) mmol/L Carbon Dioxide (21-32) mmol/L Anion Gap (5.0-14.0) mmol/L BUN (7-18) mg/dL Creatinine (0.6-1.0) mg/dL Est Cr Clr Drug Dosing mL/min Estimated GFR (MDRD) (>60) Glucose (74-106) mg/dL Calcium (8.5-10.1) mg/dL Magnesium (1.8-2.4) mg/dL C-Reactive Protein 2.11 H (0.0-0.3) mg/dL Anderson Results Last 24 Hours: Microbiology 10/04/16 21:35 Aerobic Blood Culture - Preliminary Blood - Arm, Right NO GROWTH AFTER 2 DAYS Anaerobic Blood Culture - Preliminary NO GROWTH AFTER 2 DAYS 10/04/16 21:35 Aerobic Blood Culture - Preliminary Blood - Arm, Right NO GROWTH AFTER 2 DAYS Anaerobic Blood Culture - Preliminary NO GROWTH AFTER 2 DAYS Med Orders - Current: Current Medications Acetaminophen (Tylenol) 650 mg PO Q4H PRN PRN Reason: Pain (Mild 1-3)/fever Last Admin: 10/07/16 09:43 Dose: 650 mg Aspirin (Halfprin) 81 mg PO DAILY [facility] Last Admin: 10/07/16 09:45 Dose: 81 mg Cholecalciferol (Vitamin D3) 3,000 units PO DAILY [facility] Last Admin: 10/07/16 09:45 Dose: 3,000 units Cyanocobalamin (Vitamin B12) 2,500 mcg PO DAILY [facility] Last Admin: 10/07/16 09:44 Dose: 2,500 mcg Enoxaparin Sodium (Lovenox) 70 mg SUBCUT Q12H [facility] Last Admin: 10/07/16 09:45 Dose: 70 mg Melatonin (Melatonin) 3 mg PO BEDTIME PRN PRN Reason: Sleep Multivitamins/Iron (Child Chew Iron) 1 tab PO BID [facility] Last Admin: 10/07/16 09:44 Dose: 1 tab Ondansetron HCl (Zofran Odt) 4 mg PO Q6H PRN PRN Reason: Nausea able to take PO Oxycodone HCl (Oxycodone) 5 mg PO Q4H PRN PRN Reason: Pain (moderate 4-6) Pneumococcal Polyvalent Vaccine (Pneumovax 23) 0.5 ml IM .ONCE ONE Stop: 10/08/16 10:01 Polyethylene Glycol (Miralax) 17 gm PO DAILY PRN PRN Reason: Constipation Senna/Docusate Sodium (Senna Plus) 1 tab PO BID PRN PRN Reason: Constipation Vitamin B Complex (Vitamin B Complex) 1 each PO DAILY [facility] Last Admin: 10/07/16 09:45 Dose: 1 each Warfarin Sodium (Coumadin) 5 mg PO DAILY@1300 [facility] Last Admin: 10/07/16 13:40 Dose: 5 mg Discontinued Medications Sodium Chloride (Normal Saline) 1,000 mls @ 500 mls/hr IV ASDIRECTED [facility] Last Admin: 10/04/16 21:28 Dose: 500 mls/hr Sodium Chloride (Normal Saline) 100 mls @ 3 mls/sec IV ONETIME ONE Stop: 10/04/16 19:34 Last Admin: 10/04/16 20:16 Dose: 3 mls/sec Sodium Chloride (Normal Saline) 500 mls @ 500 mls/hr IV .BOLUS ONE Stop: 10/05/16 04:39 Last Admin: 10/05/16 03:53 Dose: 500 mls/hr Iopamidol (Isovue-370 (76%)) 100 ml IV . DIRECTED [facility] Last Admin: 10/04/16 20:17 Dose: 100 ml Sodium Chloride (Saline Flush) 10 ml FLUSH ONETIME PRN PRN Reason: PER RADIOLOGY PROTOCOL Last Admin: 10/04/16 20:16 Dose: 10 ml Warfarin Sodium (Coumadin) 5 mg PO ONETIME ONE Stop: 10/05/16 20:01 Last Admin: 10/05/16 20:41 Dose: 5 mg - Exam Quality Assessment: DVT Prophylaxis General: Alert, Oriented, Cooperative, No Acute Distress Lungs: Clear to Auscultation, Normal Respiratory Effort Cardiovascular: Regular Rate, Regular Rhythm, No Murmurs GI/Abdominal Exam: Normal Bowel Sounds, Soft, Non-Tender, No Distention Extremities: Normal Range of Motion, Pedal Edema (Mild) Skin: Warm, Dry, Intact - Problem List Review Problem List Initiated/Reviewed/Updated: Yes - My Orders Last 24 Hours: My Active Orders 10/06/16 15:45 Multivitamins with Iron [Child Chew Iron] 1 tab PO BID 10/08/16 05:00 INR,PT,PROTHROMBIN TIME [COAG] Timed - Plan Plan:: Assessment and plan - Left leg DVT and small pulmonary embolism - suspect provoked DVT with recent prolonged immobilization secondary to medical illness. There is a family history of DVT. Tolerating anticoagulation so far. INR elevated from baseline but remains subtherapeutic. -Enoxaparin 1 mg/kg every 12 hours -Continue daily warfarin -Pain control -Supplement oxygen if indicated -Anticipate 3-6 months of therapy Fevers - essentially resolved, no significant temperature elevation noted since admission. Markers of inflammation including CRP and sedimentation rate were only mildly elevated. Blood cultures are negative thus far. -Monitor temperature curve -Follow-up blood cultures Maintenance issues - - DVT prophylaxis - enoxaparin - GI prophylaxis - not indicated - Nutrition - regular diet Disposition - anticipate discharge to home with possibly with home health care after the hospital stay
--- NOTE | 2016-10-07 19:26 | PCM.SN ---
- Free Text/Narrative Note: request from 2 [facility] for evaluation of left upper chest mass. Mrs. Forrester reports was taken a nap this afternoon, woke up with a lump in left upper chest. painful to touch denies any injury, falls, or causes for chest lump o; left upper chest; proximal to clavicle at mid-clavicular line. round raised palpable 10 cm x 10 cm. chest mass. skin without bruising or signs of trauma, no erythema, no discharge, or changes in skin temperature when compared to right chest. a; new onset left upper chest mass p; discussed with Mrs. Farnsworth, to not palpate area, may apply ice. will order chest ultrasound to evaluate mass. will await results of Ultrasound.
[2016-10-07] MEDS: oxyCODONE 5 MG Tab PO PRN (21:00)
[2016-10-08] MEDS: oxyCODONE 5 MG Tab PO PRN ×2 (01:51→09:37)
--- NOTE | 2016-10-08 08:50 | US ---
Chest HISTORY: spontaneous left upper chest mass [id number] cm FINDINGS: Ultrasound of the palpable mass left upper chest anteriorly demonstrates a mixed echogenic ity mass measuring 8.3 x 2.2 x 3.5 cm. This complex fluid within. Debris is layering and cystic area s. Findings are most suggestive for hematoma. Good color Doppler blood flow is seen in the subclavia n artery and vein. No active bleeding is identified. IMPRESSION: Anterior left upper chest wall mass likely represents hematoma. Abscess or other mass is felt less likely. Recommend clinical correlation and follow-up.
[2016-10-08] MEDS: Multivitamins with Iron Tab.Chew PO SCH ×2 (09:23→21:14)
[2016-10-08] MEDS: Cholecalciferol (Vitamin D3) 1,000 Unit Tab PO SCH (09:23)
[2016-10-08] MEDS: Aspirin 81 MG Tab.EC PO SCH (09:23)
[2016-10-08] MEDS: Enoxaparin 80 MG/0.8 ML Syringe SUBCUT SCH ×2 (09:24→21:14)
[2016-10-08] MEDS: Vitamin B Complex Tab PO SCH (09:24)
[2016-10-08] MEDS: Cyanocobalamin (Vitamin B12) 1,000 MCG Tab PO SCH (09:24)
[2016-10-08] MEDS ORDERED: Pneumococcal Polyvalent-23 Vaccine 0.5 ML SDV IM ONE (10:00)
[2016-10-08] MEDS: Acetaminophen 325 MG Tab PO PRN ×2 (15:16→21:14)
--- NOTE | 2016-10-08 17:00 | PCM.PN ---
- General Info Date of Service: 10/08/16 Functional Status: Reports: Pain Controlled, Tolerating Diet, Ambulating - Review of Systems General: Reports: Weakness. Denies: Fever, Chills Cardiovascular: Reports: No Symptoms Gastrointestinal: Reports: No Symptoms Genitourinary: Reports: No Symptoms Systems Review Comment:: This patient has been fairly stable over the past 24 hours, she has developed a hematoma just inferior to her left clavicle. This area is been somewhat tender it was evaluated last night and ultrasound findings were consistent with hematoma. She otherwise has been feeling improved and has been up ambulating short distances. Her pressure has trended low, she is currently on no blood pressure lowering medications. She reports her blood pressure has slowly decreased over the past several months, occasionally will note symptoms of lightheadedness with standing. - Patient Data Vitals - Most Recent: Last Vital Signs Temp 97.2 F 10/08/16 15:25 Pulse 78 10/08/16 15:25 Resp 16 10/08/16 15:25 BP 83/50 L 10/08/16 15:25 Pulse Ox 94 L 10/08/16 15:25 Weight - Most Recent: 160 lb 6.392 oz I&O - Last 24 Hours: Intake & Output 10/08/16 10/08/16 10/08/16 06:59 14:59 22:59 Intake Total 240 800 Output Total 200 300 Balance -200 -60 800 Lab Results Last 24 Hours: Laboratory Results - last 24 hr 10/06/16 10/08/16 Range/Units 04:37 04:05 PT 31.5 H (9.5-12.0) sec INR 2.82 H (0.80-1.20) Lyme Disease Screen Negative (NEG) Anderson Results Last 24 Hours: Microbiology 10/04/16 21:35 Aerobic Blood Culture - Preliminary Blood - Arm, Right NO GROWTH AFTER 3 DAYS Anaerobic Blood Culture - Preliminary NO GROWTH AFTER 3 DAYS 10/04/16 21:35 Aerobic Blood Culture - Preliminary Blood - Arm, Right NO GROWTH AFTER 3 DAYS Anaerobic Blood Culture - Preliminary NO GROWTH AFTER 3 DAYS Med Orders - Current: Current Medications Acetaminophen (Tylenol) 650 mg PO Q4H PRN PRN Reason: Pain (Mild 1-3)/fever Last Admin: 10/08/16 15:16 Dose: 650 mg Aspirin (Halfprin) 81 mg PO DAILY [facility] Last Admin: 10/08/16 09:23 Dose: 81 mg Cholecalciferol (Vitamin D3) 3,000 units PO DAILY [facility] Last Admin: 10/08/16 09:23 Dose: 3,000 units Cyanocobalamin (Vitamin B12) 2,500 mcg PO DAILY [facility] Last Admin: 10/08/16 09:24 Dose: 2,500 mcg Enoxaparin Sodium (Lovenox) 70 mg SUBCUT Q12H [facility] Last Admin: 10/08/16 09:24 Dose: 70 mg Melatonin (Melatonin) 3 mg PO BEDTIME PRN PRN Reason: Sleep Multivitamins/Iron (Child Chew Iron) 1 tab PO BID [facility] Last Admin: 10/08/16 09:23 Dose: 1 tab Ondansetron HCl (Zofran Odt) 4 mg PO Q6H PRN PRN Reason: Nausea able to take PO Oxycodone HCl (Oxycodone) 5 mg PO Q4H PRN PRN Reason: Pain (moderate 4-6) Last Admin: 10/08/16 09:37 Dose: 5 mg Polyethylene Glycol (Miralax) 17 gm PO DAILY PRN PRN Reason: Constipation Senna/Docusate Sodium (Senna Plus) 1 tab PO BID PRN PRN Reason: Constipation Vitamin B Complex (Vitamin B Complex) 1 each PO DAILY [facility] Last Admin: 10/08/16 09:24 Dose: 1 each Discontinued Medications Sodium Chloride (Normal Saline) 1,000 mls @ 500 mls/hr IV ASDIRECTED [facility] Last Admin: 10/04/16 21:28 Dose: 500 mls/hr Sodium Chloride (Normal Saline) 100 mls @ 3 mls/sec IV ONETIME ONE Stop: 10/04/16 19:34 Last Admin: 10/04/16 20:16 Dose: 3 mls/sec Sodium Chloride (Normal Saline) 500 mls @ 500 mls/hr IV .BOLUS ONE Stop: 10/05/16 04:39 Last Admin: 10/05/16 03:53 Dose: 500 mls/hr Iopamidol (Isovue-370 (76%)) 100 ml IV . DIRECTED [facility] Last Admin: 10/04/16 20:17 Dose: 100 ml Pneumococcal Polyvalent Vaccine (Pneumovax 23) 0.5 ml IM .ONCE ONE Stop: 10/08/16 10:01 Sodium Chloride (Saline Flush) 10 ml FLUSH ONETIME PRN PRN Reason: PER RADIOLOGY PROTOCOL Last Admin: 10/04/16 20:16 Dose: 10 ml Warfarin Sodium (Coumadin) 5 mg PO ONETIME ONE Stop: 10/05/16 20:01 Last Admin: 10/05/16 20:41 Dose: 5 mg Warfarin Sodium (Coumadin) 5 mg PO DAILY@1300 [facility] Last Admin: 10/07/16 13:40 Dose: 5 mg - Exam Quality Assessment: DVT Prophylaxis General: Alert, Oriented, Cooperative, No Acute Distress Lungs: Clear to Auscultation, Normal Respiratory Effort Cardiovascular: Regular Rate, Regular Rhythm, No Murmurs GI/Abdominal Exam: Normal Bowel Sounds, Soft, Non-Tender, No Organomegaly, No Distention Extremities: Pedal Edema Skin: Warm, Dry, Intact - Problem List Review Problem List Initiated/Reviewed/Updated: Yes - My Orders Last 24 Hours: My Active Orders 10/08/16 16:55 Warfarin [Coumadin] 2.5 mg PO ONETIME ONE 10/09/16 05:11 INR,PT,PROTHROMBIN TIME [COAG] AM - Plan Plan:: Assessment and plan - Left leg DVT and small pulmonary embolism - suspect provoked DVT with recent prolonged immobilization secondary to medical illness. There is a family history of DVT. INR today is therapeutic at 2.8, she has one more day of overlap therapy with Lovenox. -Enoxaparin 1 mg/kg every 12 hours -Warfarin 2.5 mg by mouth today -Pain control -Supplement oxygen if indicated -Anticipate 3-6 months of therapy Hypotension-blood pressures have trended low thus far during her hospital stay, currently on no antihypertensive therapy. -Slow transition from lying to standing or sitting to standing -High sodium diet Hematoma-left upper anterior chest wall, stable in size since yesterday Fevers - essentially resolved, no significant temperature elevation noted since admission. Markers of inflammation including CRP and sedimentation rate were only mildly elevated. Blood cultures are negative thus far. -Monitor temperature curve -Follow-up blood cultures Maintenance issues - - DVT prophylaxis - enoxaparin - GI prophylaxis - not indicated - Nutrition - regular diet Disposition - anticipate discharge to home with possibly with home health care after the hospital stay
[2016-10-08] MEDS ORDERED: Warfarin 2.5 MG Tab PO ONE (17:30)
[2016-10-09] MEDS: Acetaminophen 325 MG Tab PO PRN ×2 (00:41→08:45)
[2016-10-09] MEDS: Aspirin 81 MG Tab.EC PO SCH (08:39)
[2016-10-09] MEDS: Cyanocobalamin (Vitamin B12) 1,000 MCG Tab PO SCH (08:39)
[2016-10-09] MEDS: Multivitamins with Iron Tab.Chew PO SCH (08:39)
[2016-10-09] MEDS: Cholecalciferol (Vitamin D3) 1,000 Unit Tab PO SCH (08:39)
[2016-10-09] MEDS: Vitamin B Complex Tab PO SCH (08:40)
[2016-10-09] MEDS: Enoxaparin 80 MG/0.8 ML Syringe SUBCUT SCH (10:49)
--- NOTE | 2016-10-09 11:35 | PCM.DCSUM1 ---
Discharge Summary - Hospital Course Brief History: This patient is a 75-year-old woman was admitted through the emergency department with left leg swelling and pain secondary to deep vein thrombosis. On evaluation was also found to have had a small pulmonary embolism. - Discharge Data Discharge Date: 10/09/16 Discharge Disposition: Home, W Home Health Agency 06 Condition: Fair - Discharge Diagnosis/Problem(s) (1) Left leg DVT SNOMED Code(s): 466956899 ICD Code: I82.402 - ACUTE EMBOLISM AND THOMBOS UNSP DEEP VEINS OF L LOW EXTREM Status: Acute Current Visit: Yes Qualifiers: Affected thrombotic vein of extremity: femoral Chronicity: acute Qualified Code(s): I82.412 - Acute embolism and thrombosis of left femoral vein (2) Pulmonary embolism SNOMED Code(s): 07792223, 05731619 ICD Code: I26.99 - OTHER PULMONARY EMBOLISM WITHOUT ACUTE COR PULMONALE Status: Acute Current Visit: Yes Qualifiers: Pulmonary embolism type: other Chronicity: acute Acute cor pulmonale presence: without acute cor pulmonale Qualified Code(s): I26.99 - Other pulmonary embolism without acute cor pulmonale - Patient Summary/Data Consults: Consultations 10/05/16 11:22 PT Evaluation and Treatment [CONS] Routine Please Evaluate and Treat. PT Reason for Consult: Strengthening This query below is only for informational purposes and is not editable. Admission Diagnosis/Problem: DVT, Deep venous thrombosis of lower extremity 10/06/16 09:08 Consult to Dietary [Consult to Production Tester] [CONS] Routine Comment: Physician Instructions: Quantity: 1 Reason for Consult: Lovenox/coumadin to [place] DVT - post RNY uses protein power Person Notified: via computer Date Notified: 10/06/16 Time Notified: 09:10 Hospital Course: Ms. Forrester is a 75-year-old woman who developed some swelling in her left leg as well as pain. She presented to the emergency department for further evaluation and was found to have extensive deep vein thrombosis throughout the left leg as well as a small pulmonary embolism. She was admitted to the hospital and started on anticoagulation with therapeutic Lovenox every 12 hours as well as started on warfarin for chronic anticoagulation. She has not felt well over the past few months and is had regular fevers on a nightly basis. Was thought that she had underlying tic disease but tick panel is come back negative and she has not improved despite 2 courses of oral antibiotics. During her hospital stay she had no recurrence of her fevers and was feeling significantly improved by the time of discharge. It was felt that no further evaluation was warranted as her symptoms had essentially resolved. CRP and sedimentation rate were obtained and both were found to be only mildly elevated. By the time of discharge she completed 5 days of overlap therapy with warfarin and Lovenox. On the day of dischargeher INR was 3.54 above desired therapeutic range. She received warfarin 5 mg in the first day, 5 mg on the second day, 2.5 mg on the third day, and 1 mg on the day of discharge. Follow- up appointment will be scheduled in the Coumadin clinic for tomorrow October 10. Follow-up appointment will be scheduled with Dr. Campos within one week. Hospital course was complicated by the development of a hematoma on her right upper anterior chest. Despite ongoing anticoagulation hematoma did not increase in size over period of 2 days prior to discharge. Activity will be as tolerated and she will resume her usual diet. Follow-up with home care will be scheduled including home physical therapy as well as occupational therapy. - Patient Instructions Diet: Usual Diet as Tolerated Activity: As Tolerated Other/Special Instructions: Please schedule follow-up appointment with Dr. Campos within one week. Please schedule Coumadin clinic appointment for October 10. Arrange for home care with home physical therapy and occupational therapy after discharge. - Discharge Plan Prescriptions/Med Rec: Warfarin [Coumadin] 2 mg PO DAILY #30 tablet Home Medications: Home Meds Aspirin [Ecotrin] 81 mg PO DAILY 06/06/16 [History] Calcium Citrate/Vitamin D3 [Calcium Citrate - Vit D Caplet] 1 each PO DAILY 09/15 [History] Cholecalciferol (Vitamin D3) [Vitamin D3] 3,000 unit PO DAILY 06/06/16 [History] Cyanocobalamin (Vitamin B-12) [B-12] 2,500 mcg SL DAILY 06/06/16 [History] Melatonin 3 mg PO BEDTIME PRN 06/06/16 [History] Potassium Gluconate 99 mg PO DAILY 06/06/16 [History] Vision Formula 1 tab PO DAILY 06/06/16 [History] Vitamin B Complex [B Complex] 1 each PO DAILY 06/06/16 [History] Multivitamin [Multiple Vitamins] 1 tab PO BID 06/18/16 [History] Warfarin [Coumadin] 2 mg PO DAILY #30 tablet 10/09/16 [Rx] Patient Handouts: Warfarin: What You Need to Know, Pulmonary Embolism, Deep Vein Thrombosis Referrals: Naresh Campos MD [Primary Care Provider] - - Patient Data Vitals - Most Recent: Last Vital Signs Temp 96.1 F 10/09/16 07:41 Pulse 89 10/09/16 07:41 Resp 16 10/09/16 07:41 BP 89/60 L 10/09/16 07:41 Pulse Ox 96 10/09/16 07:41 Weight - Most Recent: 160 lb 6.392 oz I&O - Last 24 hours: Intake & Output 10/08/16 10/09/16 10/09/16 22:59 06:59 14:59 Intake Total 860 550 Output Total 500 450 400 Balance 360 100 -400 Lab Results - Last 24 hrs: Laboratory Results - last 24 hr 10/09/16 Range/Units 04:40 PT 39.9 H (9.5-12.0) sec INR 3.54 H (0.80-1.20) VIKASH Results - Last 24 hrs: Microbiology 10/04/16 21:35 Aerobic Blood Culture - Preliminary Blood - Arm, Right NO GROWTH AFTER 4 DAYS Anaerobic Blood Culture - Preliminary NO GROWTH AFTER 4 DAYS 10/04/16 21:35 Aerobic Blood Culture - Preliminary Blood - Arm, Right NO GROWTH AFTER 4 DAYS Anaerobic Blood Culture - Preliminary NO GROWTH AFTER 4 DAYS Med Orders - Current: Current Medications Acetaminophen (Tylenol) 650 mg PO Q4H PRN PRN Reason: Pain (Mild 1-3)/fever Last Admin: 10/09/16 08:45 Dose: 650 mg Aspirin (Halfprin) 81 mg PO DAILY [facility] Last Admin: 10/09/16 08:39 Dose: 81 mg Cholecalciferol (Vitamin D3) 3,000 units PO DAILY [facility] Last Admin: 10/09/16 08:39 Dose: 3,000 units Cyanocobalamin (Vitamin B12) 2,500 mcg PO DAILY [facility] Last Admin: 10/09/16 08:39 Dose: 2,500 mcg Enoxaparin Sodium (Lovenox) 70 mg SUBCUT Q12H [facility] Last Admin: 10/09/16 10:49 Dose: 70 mg Melatonin (Melatonin) 3 mg PO BEDTIME PRN PRN Reason: Sleep Multivitamins/Iron (Child Chew Iron) 1 tab PO BID [facility] Last Admin: 10/09/16 08:39 Dose: 1 tab Ondansetron HCl (Zofran Odt) 4 mg PO Q6H PRN PRN Reason: Nausea able to take PO Oxycodone HCl (Oxycodone) 5 mg PO Q4H PRN PRN Reason: Pain (moderate 4-6) Last Admin: 10/08/16 09:37 Dose: 5 mg Polyethylene Glycol (Miralax) 17 gm PO DAILY PRN PRN Reason: Constipation Senna/Docusate Sodium (Senna Plus) 1 tab PO BID PRN PRN Reason: Constipation Vitamin B Complex (Vitamin B Complex) 1 each PO DAILY [facility] Last Admin: 10/09/16 08:40 Dose: 1 each Discontinued Medications Sodium Chloride (Normal Saline) 1,000 mls @ 500 mls/hr IV ASDIRECTED [facility] Last Admin: 10/04/16 21:28 Dose: 500 mls/hr Sodium Chloride (Normal Saline) 100 mls @ 3 mls/sec IV ONETIME ONE Stop: 10/04/16 19:34 Last Admin: 10/04/16 20:16 Dose: 3 mls/sec Sodium Chloride (Normal Saline) 500 mls @ 500 mls/hr IV .BOLUS ONE Stop: 10/05/16 04:39 Last Admin: 10/05/16 03:53 Dose: 500 mls/hr Iopamidol (Isovue-370 (76%)) 100 ml IV . DIRECTED [facility] Last Admin: 10/04/16 20:17 Dose: 100 ml Pneumococcal Polyvalent Vaccine (Pneumovax 23) 0.5 ml IM .ONCE ONE Stop: 10/08/16 10:01 Last Admin: 10/08/16 18:22 Dose: Not Given Sodium Chloride (Saline Flush) 10 ml FLUSH ONETIME PRN PRN Reason: PER RADIOLOGY PROTOCOL Last Admin: 10/04/16 20:16 Dose: 10 ml Warfarin Sodium (Coumadin) 5 mg PO ONETIME ONE Stop: 10/05/16 20:01 Last Admin: 10/05/16 20:41 Dose: 5 mg Warfarin Sodium (Coumadin) 5 mg PO DAILY@1300 [facility] Last Admin: 10/07/16 13:40 Dose: 5 mg Warfarin Sodium (Coumadin) 2.5 mg PO ONETIME ONE Stop: 10/08/16 17:31 Last Admin: 10/08/16 17:47 Dose: 2.5 mg *Q Meaningful Use (DIS) - VTE *Q VTE Criteria *Q: - Stroke *Q Stroke Criteria *Q: - AMI *Q AMI Criteria *Q:
[2016-10-09 14:53] VITALS: BP 92/57
== END 2016-10-09 15:07 | disposition home health service (06) | DRG 299 ==
LOC: JP.ED 15:56 → JP.MS 20:45 → UNDOADMIN 20:45 → JP.MS 20:51 → UNDOADMIN 22:00 → JP.MS 22:00 → UNDODISIN 10-09 15:07
PROVIDERS: ADMIT Internal Medicine; ATTEND Hospitalist
DX: I82.412 Acute embolism and thrombosis of left femoral vein (principal); I26.99 Other pulmonary embolism without acute cor pulmonale; K21.9 Gastro-esophageal reflux disease without esophagitis; E53.8 Deficiency of other specified B group vitamins; Z86.718 Personal history of other venous thrombosis and embolism; R50.9 Fever, unspecified; I95.9 Hypotension, unspecified; R23.3 Spontaneous ecchymoses; Z79.899 Other long term (current) drug therapy
CPT/HCPCS: 36415; 71260; 74177; 80053; 85025; 85610; 93971; 99285; J7030; J7050; Q9967; 76604; 76604-26; 80048; 83735; 85027; 85651; 86140; 86618; 86666; 86666-59; 86753; 87040; 97110-GP; 97116-GP; 97162-GP; 97530-GP; 99284; A9270-GY; J1650; J7040